=== PATIENT | male | born 1985 | race Caucasian/White ===

== ENCOUNTER 2017-07-26 22:49 | Emergency (ER) | payer SELFPAY ==
[~2017-07-26] VITALS: Ht 182.9 cm; Wt 74.8 kg
[2017-07-26 22:57] VITALS: BP 116/84
== END 2017-07-27 01:00 | disposition left against medical advice (07) ==
LOC: ER 22:55
DX: H92.02 Otalgia, left ear (principal); Z53.21 Procedure and treatment not carried out due to patient leaving prior to being seen by health care provider

== ENCOUNTER 2018-11-10 22:02 | Emergency (ER) | payer MEDICAID, OTHER ==
[~2018-11-10] VITALS: Ht 180.3 cm; Wt 81.6 kg
[2018-11-11 00:13] VITALS: BP 120/79
[2018-11-11] MEDS ORDERED: cefTRIAXone SOD 1,000 MG VL IM ONE (01:00)
== END 2018-11-11 01:37 | disposition home or self-care (01) ==
LOC: ER 22:07
DX: L03.011 Cellulitis of right finger (principal); F17.210 Nicotine dependence, cigarettes, uncomplicated
CPT/HCPCS: 96372; 99283; J0696

== ENCOUNTER 2018-11-12 18:12 | Emergency (ER) | payer OTHER ==
[~2018-11-12] VITALS: Ht 180.3 cm; Wt 81.6 kg
[2018-11-13 03:26] VITALS: BP 130/81
[2018-11-13] MEDS ORDERED: CLINDAMYCIN 900MG IV 50 ML IV ONE (04:30)
[2018-11-13] MEDS ORDERED: IBUPROFEN 800 MG TAB PO ONE (05:00)
[2018-11-13] MEDS ORDERED: TETANUS-DIPTH-ACEL PERTUSSIS 0.5ML SYRG IM ONE (05:15)
== END 2018-11-13 07:00 | disposition home or self-care (01) ==
LOC: ER 18:17
DX: L02.511 Cutaneous abscess of right hand (principal); L03.011 Cellulitis of right finger; F17.210 Nicotine dependence, cigarettes, uncomplicated
CPT/HCPCS: 10060; 73140; 90471; 90715; 96365; 99283; J3490

== ENCOUNTER 2018-11-14 21:25 | Emergency (ER) | payer OTHER ==
[~2018-11-14] VITALS: Ht 180.3 cm; Wt 81.6 kg
[2018-11-14 21:45] VITALS: BP 115/79
[2018-11-15] MEDS ORDERED: cefTRIAXone SOD 1,000 MG VL IM ONE (02:15)
== END 2018-11-15 04:29 | disposition home or self-care (01) ==
LOC: ER 21:27
DX: L02.511 Cutaneous abscess of right hand (principal); F17.210 Nicotine dependence, cigarettes, uncomplicated; Z48.01 Encounter for change or removal of surgical wound dressing
CPT/HCPCS: 73200; 87077; 87186; 87205; 96372; 99284; J0696

== ENCOUNTER 2018-12-11 04:09 | Emergency (ER) | payer OTHER ==
[~2018-12-11] VITALS: Ht 180.3 cm; Wt 72.6 kg
[2018-12-11 06:50] VITALS: BP 125/84
== END 2018-12-11 07:05 | disposition home or self-care (01) ==
LOC: ER 04:09
DX: L03.011 Cellulitis of right finger (principal); F17.210 Nicotine dependence, cigarettes, uncomplicated

== ENCOUNTER 2019-03-10 17:24 | Emergency (ER) | payer OTHER ==
[~2019-03-10] VITALS: Ht 180.3 cm; Wt 72.6 kg
[2019-03-10 18:48] VITALS: BP 101/63
[2019-03-10] MEDS ORDERED: LORazepam 0.5 MG TAB PO ONE (19:15)
[2019-03-10] MEDS ORDERED: LIDOCAINE 1% HCL (LOCAL ANESTH.) INJ 20ML MDV IJ ONE (19:15)
[2019-03-10] MEDS ORDERED: cefTRIAXone SOD 1,000 MG VL IM ONE (19:30)
== END 2019-03-10 20:44 | disposition home or self-care (01) ==
LOC: ER 17:24
DX: S61.211A Laceration without foreign body of left index finger without damage to nail, initial encounter (principal); F17.210 Nicotine dependence, cigarettes, uncomplicated; W27.0XXA Contact with workbench tool, initial encounter; Y93.89 Activity, other specified; Y92.89 Other specified places as the place of occurrence of the external cause; Y99.8 Other external cause status
CPT/HCPCS: 12001; 73130; 96372; 99283; J0696; J2001

== ENCOUNTER 2019-03-22 11:39 | Emergency (ER) | payer OTHER ==
[~2019-03-22] VITALS: Ht 180.3 cm; Wt 81.6 kg
[2019-03-22 12:14] VITALS: BP 123/80
== END 2019-03-22 13:27 | disposition home or self-care (01) ==
LOC: ER 11:39
DX: S61.211D Laceration without foreign body of left index finger without damage to nail, subsequent encounter (principal); F17.210 Nicotine dependence, cigarettes, uncomplicated; X58.XXXD Exposure to other specified factors, subsequent encounter

== ENCOUNTER 2023-12-14 11:31 | Emergency (ER) | payer OTHER ==
[~2023-12-14] VITALS: Ht 180.3 cm; Wt 64.3 kg
[2023-12-14 13:05] LABS: Urine Bacteria None Seen /hpf (None Seen)
[2023-12-14 13:13] LABS: Basophils # (auto) 0 10 ^3/uL (0-0.2); Basophils % (auto) 0.2 % (0.0-2.0); Eosinophils # (auto) 0 10 ^3/uL (0-0.8); Eosinophils % (auto) 0.4 % (0.0-7.0); Hematocrit 41.3 % (41.0-53.0); Hemoglobin 14.5 g/dL (13.5-17.5); Lymphocytes # (auto) 1.5 10 ^3/uL (0.4-5.4); Lymphocytes % (auto) 12.9 % (10.0-50.0); Mean Corpuscular Hgb Conc. 35.1 g/dL (32.0-36.0); Mean Corpuscular Volume 85.5 fL (80.0-100.0); Monocytes # (auto) 1.2 10 ^3/uL (0-1.3); Monocytes % (auto) 10.7 % (0.0-12.0); Neutrophils # (auto) 8.7 10 ^3/uL (1.6-8.6); Neutrophils % (auto) 75.8 % (37.0-80.0); Platelet Count (auto) 270 10^3/uL (140-450); Red Blood Cells 4.84 10^6/uL (4.5-5.90); Red Cell Distribution Width 13.3 % (11.8-14.3); White Blood Cell 11.5 10^3/uL (4.4-10.8)
[2023-12-14 13:24] LABS: Urine Blood Negative /uL (Negative); Urine Clarity Clear (Clear); Urine Color Yellow (Yellow); Urine Protein, UAD TRACE (Negative); Urine Specific Gravity 1.016 (1.001-1.035); Urine Urobilinogen Normal (Negative); Urine WBC 3 /hpf (0 - 3); Urine pH 6.5 (5.0-9.0)
[2023-12-14 13:32] LABS: Alanine Aminotransferase 24 U/L (7-40); Albumin 3.9 g/dL (3.2-4.8); Alkaline Phosphatase 65 U/L (46-116); Anion Gap 7 (5-15); Aspartate Aminotransferase 20 U/L (13-40); BUN/Creatinine Ratio 7.3 (10.0-20.0); Blood Urea Nitrogen 9 mg/dL (9-23); Calcium 9.1 mg/dL (8.7-10.4); Carbon Dioxide 31 mmol/L (20-30); Chloride 95 mmol/L (98-107); Glucose 127 mg/dL (74-106); Potassium 2.9 mmol/L (3.5-5.1); Sodium 133 mmol/L (136-145); Total Protein 6.8 g/dL (5.7-8.2)
[2023-12-14] MEDS: SODIUM CHLORIDE 0.9% 1,000 ML IV ONE (14:40)
[2023-12-14 14:43] VITALS: TEMP 98.6; O2SAT 100
[2023-12-14] MEDS: TAMSULOSIN HYDROCHLORIDE 0.4 MG CAP PO ONE (15:01)
[2023-12-14] MEDS: HYDROcodone-ACET 5/325MG TAB PO ONE (15:02)
[2023-12-14] MEDS: fentaNYL CITRATE 100 MCG/2 ML VL IV ONE (15:04)
[2023-12-14] MEDS ORDERED: TAMS-35 PO (15:51)
[2023-12-14 16:00] VITALS: BP 126/69; PULSE 73; RESP 17; O2SAT 100
[2023-12-14] MEDS: KETOROLAC TROMETH 30 MG/ML 1ML VIAL IV ONE (16:07)
== END 2023-12-14 16:10 | disposition home or self-care (01) ==
LOC: ER 11:31
DX: N13.2 Hydronephrosis with renal and ureteral calculous obstruction (principal); N23 Unspecified renal colic; F17.210 Nicotine dependence, cigarettes, uncomplicated; Z79.899 Other long term (current) drug therapy; Z98.890 Other specified postprocedural states
CPT/HCPCS: 36415; 74176; 80053; 81001; 85025; 96361; 96374; 96375; 99285; J1885; J3010; J7030